=== PATIENT | female | born 1980 | race Caucasian/White ===

== ENCOUNTER 2017-04-03 16:33 | Emergency (ER) | payer OTHER ==
[~2017-04-03] VITALS: Ht 177.8 cm; Wt 250.0 kg
[2017-04-03] MEDS ORDERED: PERCOCET 5/31 TABLET PO (19:13)
[2017-04-03 19:54] VITALS: BP 100/81
== END 2017-04-03 20:14 | disposition home or self-care (01) ==
LOC: EME 16:33
PROC: 3E0234Z Introduction of Serum, Toxoid and Vaccine into Muscle, Percutaneous Approach (ICD-10-PCS; principal; 2017-04-03)
DX: S09.8XXA Other specified injuries of head, initial encounter (principal); S00.83XA Contusion of other part of head, initial encounter; S00.81XA Abrasion of other part of head, initial encounter; R07.9 Chest pain, unspecified; S60.222A Contusion of left hand, initial encounter; S90.32XA Contusion of left foot, initial encounter; M79.605 Pain in left leg; M79.604 Pain in right leg; M54.2 Cervicalgia; V49.9XXA Car occupant (driver) (passenger) injured in unspecified traffic accident, initial encounter; W22.10XA Striking against or struck by unspecified automobile airbag, initial encounter; Y92.410 Unspecified street and highway as the place of occurrence of the external cause; Z23 Encounter for immunization; I51.7 Cardiomegaly; M20.12 Hallux valgus (acquired), left foot; E66.01 Morbid (severe) obesity due to excess calories; Z68.45 Body mass index [BMI] 70 or greater, adult
CPT/HCPCS: 70250; 70260; 71045; 71046; 73130; 73630; 99281; 99284